=== PATIENT | male | born 1985 | race Caucasian/White ===

== ENCOUNTER 2017-09-20 21:37 | Inpatient (IN) | payer OTHER ==
[2017-09-20] MEDS ORDERED: SODIUM CHLORIDE 1,000 ML IV STA (21:44)
--- NOTE | 2017-09-20 21:46 | PDOC ---
Rapid Medical Evaluation Time Seen by Provider: 09/20/17 21:39 Medical Evaluation: Allergies Allergy/AdvReac Type Severity Reaction Status Date / Time No Known Allergies Allergy Verified 05/04/14 16:57 09/20/17 21:39 I have performed a brief in-person evaluation of this patient. The patient presents with a chief complaint of: LUQ pain Pertinent physical exam findings: abd firm non-tender. I have ordered the following: labs, CT The patient will proceed to the ED for further evaluation. Discharge Disposition - Diagnosis Abdominal pain - Referrals - Patient Instructions - Post Discharge Activity
[2017-09-20 22:21] LABS: HEMATOCRIT 45.7 % (35.4-49); HEMOGLOBIN 15.3 GM/dL (11.7-16.9); MCH 30.3 pg (25.7-33.7); MCHC 33.5 g/dl (32.0-35.9); MEAN CELL VOLUME 90.6 fl (80-96); MEAN PLT VOLUME 7.9 fl (7.5-11.1); PLATELET COUNT 467 K/MM3 (134-434); RBC 5.04 M/mm3 (4.00-5.60); RDW 13.5 % (11.9-15.9); WHITE BLOOD COUNT 28.1 K/mm3 (4.0-10.0)
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
[2017-09-20 22:36] LABS: INR 1.02 (0.82-1.09); PROTHROMBIN TIME (PATIENT) 11.5 SEC (9.7-13.0)
[2017-09-20 22:54] LABS: ALBUMIN 4.1 g/dl (3.4-5.0); ALK PHOS 83 U/L (45-117); ANION GAP 9 (8-16); BILIRUBIN,TOTAL 1.6 mg/dL (0.2-1.0); BLOOD UREA NITROGEN 19 mg/dL (7-18); CHLORIDE 104 mmol/L (98-107); CO2 27 mmol/L (21-32); CREATININE 1.3 mg/dL (0.7-1.3); GLUCOSE,RANDOM 133 mg/dL (74-106); LIPASE 176 U/L (73-393); POTASSIUM 4.1 mmol/L (3.5-5.1); SGOT/AST 174 U/L (15-37); SGPT/ALT 116 U/L (12-78); SODIUM 140 mmol/L (136-145); TOT PROT 7.9 g/dl (6.4-8.2)
[2017-09-20] MEDS ORDERED: morphine SULFATE 4 MG/ML VIAL IVPUSH ONE (23:27)
[2017-09-20] MEDS ORDERED: morphine SULFATE 4 MG/ML VIAL ONE (23:28)
[2017-09-21] LABS: MACROCYTOSIS 1+; PLATELET ESTIMATE SLT INCREASE
[2017-09-21 00:05] LABS: URINE APPEARANCE CLEAR; URINE BILIRUBIN NEGATIVE (<2.0 mg/dL); URINE COLOR LTYELLOW; URINE GLUCOSE (UA) NEGATIVE (NEGATIVE); URINE KETONE 1+ (NEGATIVE); URINE LEUK ESTERASE NEGATIVE (NEGATIVE); URINE NITRITE NEGATIVE (NEGATIVE); URINE PROTEIN NEGATIVE (NEGATIVE); URINE UROBILINOGEN NEGATIVE mg/dL (0.2-1.0)
--- NOTE | 2017-09-21 00:22 | PDOC ---
*Physical Exam - Vital Signs Last Vital Signs Temp Pulse Resp BP Pulse Ox 98 F 57 L 18 155/79 95 09/20/17 21:43 09/20/17 21:43 09/20/17 21:43 09/20/17 21:43 09/21/17 00:17 - Physical Exam Comments: 09/21/17 00:19 gen: aaox3, uncomfortable, diaphoretic heart: +s1s2 reg lungs: cta b/l abd: soft, epigastric ttp, periumbilical ttp, no rebound or guarding, had a bm in ED that was normal ext: no c/c/e ED Treatment Course - LABORATORY CBC & Chemistry Diagram: 09/20/17 22:00 09/20/17 22:00 - ADDITIONAL ORDERS Additional order review: Laboratory Results 09/20/17 09/20/17 09/20/17 23:38 22:00 22:00 PT with INR INR Sodium 140 Potassium 4.1 Chloride 104 Carbon Dioxide 27 Anion Gap 9 BUN 19 H D Creatinine 1.3 D Creat Clearance w eGFR > 60 Random Glucose 133 H D Calcium 10.0 Total Bilirubin 1.6 H D AST 174 H D ALT 116 H D Alkaline Phosphatase 83 Total Protein 7.9 Albumin 4.1 Lipase 176 Urine Color Ltyellow Urine Appearance Clear Urine pH 6.0 Ur Specific Bandy 1.016 Urine Protein Negative Urine Glucose (UA) Negative Urine Ketones 1+ H Urine Blood Negative Urine Nitrite Negative Urine Bilirubin Negative Urine Urobilinogen Negative Ur Leukocyte Esterase Negative Blood Type O POSITIVE Antibody Screen Negative 09/20/17 22:00 PT with INR 11.50 INR 1.02 Sodium Potassium Chloride Carbon Dioxide Anion Gap BUN Creatinine Creat Clearance w eGFR Random Glucose Calcium Total Bilirubin AST ALT Alkaline Phosphatase Total Protein Albumin Lipase Urine Color Urine Appearance Urine pH Ur Specific Bandy Urine Protein Urine Glucose (UA) Urine Ketones Urine Blood Urine Nitrite Urine Bilirubin Urine Urobilinogen Ur Leukocyte Esterase Blood Type Antibody Screen 09/20/17 22:00 RBC 5.04 MCV 90.6 MCHC 33.5 RDW 13.5 MPV 7.9 Neutrophils % No Result Required. Lymphocytes % No Result Required. - Medications Given in the ED: ED Medications Discontinued Medications Generic Name Dose Route Start Last Admin Trade Name Freq PRN Reason Stop Dose Admin Sodium Chloride 1,000 mls @ 1,000 mls/hr 09/20/17 21:44 09/20/17 22:16 Normal Saline - IV 09/20/17 22:43 1,000 mls/hr ASDIR STA Administration Morphine Sulfate 4 mg 09/20/17 23:27 09/20/17 23:59 Morphine Sulfate IVPUSH 09/20/17 23:28 4 mg ONCE ONE Administration Medical Decision Making - Medical Decision Making 09/21/17 00:20 a/p: 31yo male with hx of SBO and multiple abd surgeries with acute onset of pain today -had bm in ED, however epigastric fullness feeling that is similar to SBO in past -will check labs, ct abd/pelvis 09/21/17 00:21 wbc [address] pending *DC/Admit/Observation/Transfer Diagnosis at time of Disposition: Abdominal pain - Referrals - Patient Instructions - Post Discharge Activity
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
[2017-09-21] MEDS ORDERED: SODIUM CHLORIDE 1,000 ML IV SCH (03:30)
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
[2017-09-21] MEDS ORDERED: PIPERACILLIN/TAZOB 3.375 GM 3.375 GM in DEXTROSE 5%-WATER - 50 ML IVPB ONE (11:00)
[2017-09-21 11:49] LABS: HEMATOCRIT 43.1 % (35.4-49); HEMOGLOBIN 15.1 GM/dL (11.7-16.9); MCH 31.4 pg (25.7-33.7); MCHC 34.9 g/dl (32.0-35.9); MEAN CELL VOLUME 89.9 fl (80-96); MEAN PLT VOLUME 8.3 fl (7.5-11.1); PLATELET COUNT 435 K/MM3 (134-434); RBC 4.79 M/mm3 (4.00-5.60); RDW 13.6 % (11.9-15.9); WHITE BLOOD COUNT 12.8 K/mm3 (4.0-10.0)
[2017-09-21] MEDS ORDERED: PIPERACILLIN/TAZOBACTAM 3.375 GM VIAL IVPB ONE (11:51)
[2017-09-21] MEDS ORDERED: DEXTROSE 5%-WATER - 50 ML IVPB ONE (11:51)
[2017-09-21 11:55] LABS: INR 1.09 (0.82-1.09); PROTHROMBIN TIME (PATIENT) 12.3 SEC (9.7-13.0)
[2017-09-21 11:58] LABS: ACTIVATED PTT 33.4 SECONDS (26.9-34.4)
[2017-09-21 12:43] VITALS: BMI 21.9
[2017-09-21 13:05] LABS: ALBUMIN 4.1 g/dl (3.4-5.0)
[2017-09-21 13:10] LABS: BILIRUBIN,DIRECT 0.5 mg/dL (0.0-0.2); TOT PROT 7.8 g/dl (6.4-8.2)
[2017-09-21] MEDS ORDERED: PT OWN MED DRAWER 7, Y5N ONE (14:15)
--- NOTE | 2017-09-21 14:40 | PN ---
Progress Note (short form) - Note Progress Note: ID Consult dictated Cholelithiasis R/O cholecystitis Leukocytosis- multifactorial S/P splenectomy Await c/s MRI abdomen Empiric levaquin / flagyl
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
[2017-09-21] MEDS: LACTATED RINGERS SOLUTION 1,000 ML/1,000 ML INFUS.BAG IV SCH (23:51)
[2017-09-22 06:42] LABS: EOS % 1.9 % (0-4.5); HEMATOCRIT 40.2 % (35.4-49); LYMPH % 35.6 % (8-40); MCH 31.3 pg (25.7-33.7); MCHC 34.7 g/dl (32.0-35.9); MEAN CELL VOLUME 90.3 fl (80-96); MEAN PLT VOLUME 8.1 fl (7.5-11.1); MONO % 9.1 % (3.8-10.2); NEUT % 52.4 % (42.8-82.8); PLATELET COUNT 390 K/MM3 (134-434); RBC 4.46 M/mm3 (4.00-5.60); RDW 13.7 % (11.9-15.9); WHITE BLOOD COUNT 12.6 K/mm3 (4.0-10.0)
[2017-09-22 06:53] LABS: ALBUMIN 3.6 g/dl (3.4-5.0); ANION GAP 10 (8-16); BLOOD UREA NITROGEN 13 mg/dL (7-18); CHLORIDE 105 mmol/L (98-107); CO2 24 mmol/L (21-32); CREATININE 0.9 mg/dL (0.7-1.3); GLUCOSE,RANDOM 71 mg/dL (74-106); POTASSIUM 4.4 mmol/L (3.5-5.1); SGOT/AST 42 U/L (15-37); SGPT/ALT 125 U/L (12-78); SODIUM 139 mmol/L (136-145); TOT PROT 6.7 g/dl (6.4-8.2)
[2017-09-22 06:54] LABS: ALK PHOS 78 U/L (45-117)
--- NOTE | 2017-09-22 09:09 | PN ---
Progress Note, Physician History of Present Illness: Asymptomatic. No events overnight. MRI formal report pending - Current Medication List Current Medications: Active Medications Lactated Ringer's (Lactated Ringers Solution) 1,000 ml in 1,000 mls @ 125 mls/ hr IV ASDIR [facility] Last Admin: 09/21/17 23:51 Dose: 125 mls/hr Metronidazole (Flagyl 500mg Premixed Ivpb -) 500 mg in 100 mls @ 100 mls/hr IVPB Q6H-IV [facility] Last Admin: 09/22/17 02:15 Dose: 100 mls/hr Sodium Chloride (Normal Saline -) 1,000 mls @ 52 mls/hr IV ASDIR [facility] Levofloxacin (Levaquin 750 Mg Premixed Ivpb -) 750 mg in 150 mls @ 150 mls/hr IVPB DAILY [facility] - Objective Vital Signs: Vital Signs Temperature 98 F 09/22/17 03:00 Pulse Rate 75 09/22/17 03:00 Respiratory Rate 18 09/22/17 03:00 Blood Pressure 108/65 09/22/17 03:00 O2 Sat by Pulse Oximetry (%) 95 09/21/17 21:00 Constitutional: Yes: Well Nourished, No Distress, Calm Gastrointestinal: Yes: Normal Bowel Sounds, Soft. No: Ascites, Distention, Melena, Tenderness, Tenderness, Rebound, Vomiting Neurological: Yes: Alert, Oriented Labs: CBC, BMP 09/22/17 05:15 09/22/17 05:15 INR, PTT INR 1.09 (0.82-1.09) 09/21/17 10:50 Laboratory Last Values WBC 12.6 K/mm3 (4.0-10.0) H 09/22/17 05:15 RBC 4.46 M/mm3 (4.00-5.60) 09/22/17 05:15 Hgb 14.0 GM/dL (11.7-16.9) 09/22/17 05:15 Hct 40.2 % (35.4-49) 09/22/17 05:15 MCV 90.3 fl (80-96) 09/22/17 05:15 MCH 31.3 pg (25.7-33.7) 09/22/17 05:15 MCHC 34.7 g/dl (32.0-35.9) 09/22/17 05:15 RDW 13.7 % (11.9-15.9) 09/22/17 05:15 Plt Count 390 K/MM3 (134-434) 09/22/17 05:15 MPV 8.1 fl (7.5-11.1) 09/22/17 05:15 Absolute Neuts (auto) 6.6 # 09/22/17 05:15 Total Counted 100 09/20/17 22:00 Neutrophils % 52.4 % (42.8-82.8) D 09/22/17 05:15 Neutrophils % (Manual) 70.0 % (42.8-82.8) 09/20/17 22:00 Lymphocytes % 35.6 % (8-40) D 09/22/17 05:15 Lymphocytes % (Manual) 25.0 % (8-40) 09/20/17 22:00 Monocytes % 9.1 % (3.8-10.2) 09/22/17 05:15 Monocytes % (Manual) 5 % (3.8-10.2) 09/20/17 22:00 Eosinophils % 1.9 % (0-4.5) D 09/22/17 05:15 Basophils % 1.0 % (0-2.0) 09/22/17 05:15 Nucleated RBC % 0 % (0-0) 09/22/17 05:15 Differential Comment Man diff performed 09/20/17 22:00 Platelet Estimate Slt increase 09/20/17 22:00 Platelet Comment 09/20/17 22:00 Macrocytosis 1+ 09/20/17 22:00 PT with INR 12.30 SEC (9.7-13.0) 09/21/17 10:50 INR 1.09 (0.82-1.09) 09/21/17 10:50 PTT (Actin FS) 33.4 SECONDS (26.9-34.4) 09/21/17 10:50 Sodium 139 mmol/L (136-145) 09/22/17 05:15 Potassium 4.4 mmol/L (3.5-5.1) 09/22/17 05:15 Chloride 105 mmol/L (98-107) 09/22/17 05:15 Carbon Dioxide 24 mmol/L (21-32) 09/22/17 05:15 Anion Gap 10 (8-16) 09/22/17 05:15 BUN 13 mg/dL (7-18) D 09/22/17 05:15 Creatinine 0.9 mg/dL (0.7-1.3) D 09/22/17 05:15 Creat Clearance w eGFR > 60 (>60) 09/22/17 05:15 Random Glucose 71 mg/dL (74-106) L D 09/22/17 05:15 Calcium 9.0 mg/dL (8.5-10.1) 09/22/17 05:15 Total Bilirubin 3.0 mg/dL (0.2-1.0) H D 09/22/17 05:15 Direct Bilirubin 0.5 mg/dL (0.0-0.2) H 09/21/17 10:50 AST 42 U/L (15-37) H D 09/22/17 05:15 ALT 125 U/L (12-78) H D 09/22/17 05:15 Alkaline Phosphatase 78 U/L (45-117) D 09/22/17 05:15 Total Protein 6.7 g/dl (6.4-8.2) 09/22/17 05:15 Albumin 3.6 g/dl (3.4-5.0) 09/22/17 05:15 Lipase 176 U/L (73-393) 09/20/17 22:00 Urine Color Ltyellow 09/20/17 23:38 Urine Appearance Clear 09/20/17 23:38 Urine pH 6.0 (5.0-8.0) 09/20/17 23:38 Ur Specific [place] 1.016 (1.001-1.035) 09/20/17 23:38 Urine Protein Negative (NEGATIVE) 09/20/17 23:38 Urine Glucose (UA) Negative (NEGATIVE) 09/20/17 23:38 Urine Ketones 1+ (NEGATIVE) H 09/20/17 23:38 Urine Blood Negative (NEGATIVE) 09/20/17 23:38 Urine Nitrite Negative (NEGATIVE) 09/20/17 23:38 Urine Bilirubin Negative (<2.0 mg/dL) 09/20/17 23:38 Urine Urobilinogen Negative mg/dL (0.2-1.0) 09/20/17 23:38 Ur Leukocyte Esterase Negative (NEGATIVE) 09/20/17 23:38 Blood Type O POSITIVE 09/20/17 22:00 Antibody Screen Negative 09/20/17 22:00 Problem List - Problems (1) History of small bowel obstruction Code(s): Z87.19 - PERSONAL HISTORY OF OTHER DISEASES OF THE DIGESTIVE SYSTEM (2) Abdominal pain Code(s): R10.9 - UNSPECIFIED ABDOMINAL PAIN (3) History of nephrectomy Code(s): Z90.5 - ACQUIRED ABSENCE OF KIDNEY (4) History of total splenectomy Code(s): Z90.81 - ACQUIRED ABSENCE OF SPLEEN (5) Transaminitis Code(s): R74.0 - NONSPEC ELEV OF LEVELS OF TRANSAMNS & LACTIC ACID DEHYDRGNSE Assessment/Plan Unclear etiology of the pain, ? biliary colic, ? resolved SBO, ? passed biliary stone, ? PUD. Disproportionately elevated indirect bili with ALT predominant hepatitis. No intrahepatic, or extraherpatic cholestasis on labs. Agree with viral serology. Avoid hepatotoxic meds. SHANITA, LDH, haptoglobin, daily liver chem. ALP, t and d bili. MRCP. Will follow.
--- NOTE | 2017-09-22 09:48 | PN ---
Progress Note, Physician History of Present Illness: pt seen/ examined. chart reviewed feels ok npo mother at bedside - Current Medication List Current Medications: Active Medications Lactated Ringer's (Lactated Ringers Solution) 1,000 ml in 1,000 mls @ 125 mls/ hr IV ASDIR [facility] Last Admin: 09/21/17 23:51 Dose: 125 mls/hr Metronidazole (Flagyl 500mg Premixed Ivpb -) 500 mg in 100 mls @ 100 mls/hr IVPB Q6H-IV [facility] Last Admin: 09/22/17 09:41 Dose: 100 mls/hr Levofloxacin (Levaquin 750 Mg Premixed Ivpb -) 750 mg in 150 mls @ 150 mls/hr IVPB DAILY [facility] Last Admin: 09/22/17 09:41 Dose: 150 mls/hr - Objective Vital Signs: Vital Signs Temperature 98 F 09/22/17 03:00 Pulse Rate 75 09/22/17 03:00 Respiratory Rate 18 09/22/17 03:00 Blood Pressure 108/65 09/22/17 03:00 O2 Sat by Pulse Oximetry (%) 95 09/21/17 21:00 Constitutional: Yes: No Distress Neck: Yes: Supple Cardiovascular: Yes: Regular Rate and Rhythm Respiratory: Yes: CTA Bilaterally Gastrointestinal: Yes: Normal Bowel Sounds, Soft Edema: No Neurological: Yes: Alert Labs: CBC, BMP 09/22/17 05:15 09/22/17 05:15 INR, PTT INR 1.09 (0.82-1.09) 09/21/17 10:50 - ....Imaging Cat Scan: Report Reviewed MRI: Pending Problem List - Problems (1) Abdominal pain Code(s): R10.9 - UNSPECIFIED ABDOMINAL PAIN (2) Choledocholithiasis Code(s): K80.50 - CALCULUS OF BILE DUCT W/O CHOLANGITIS OR CHOLECYST W/O OBST (3) History of nephrectomy Code(s): Z90.5 - ACQUIRED ABSENCE OF KIDNEY (4) History of total splenectomy Code(s): Z90.81 - ACQUIRED ABSENCE OF SPLEEN (5) Transaminitis Code(s): R74.0 - NONSPEC ELEV OF LEVELS OF TRANSAMNS & LACTIC ACID DEHYDRGNSE Assessment/Plan clinically better wbc coming down monitor lfts cholecystectomy planned in near future abx start on diet ? gi to follow will follow discussed with pts mother also
[2017-09-22] MEDS: LACTATED RINGERS SOLUTION 1,000 ML/1,000 ML INFUS.BAG IV SCH ×2 (10:00→20:33)
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
--- NOTE | 2017-09-22 12:02 | PN ---
Progress Note (short form) - Note Progress Note: MRI and Sx note noted. Await labs Problem List - Problems (1) History of small bowel obstruction Code(s): Z87.19 - PERSONAL HISTORY OF OTHER DISEASES OF THE DIGESTIVE SYSTEM (2) Abdominal pain Code(s): R10.9 - UNSPECIFIED ABDOMINAL PAIN (3) History of nephrectomy Code(s): Z90.5 - ACQUIRED ABSENCE OF KIDNEY (4) History of total splenectomy Code(s): Z90.81 - ACQUIRED ABSENCE OF SPLEEN (5) Transaminitis Code(s): R74.0 - NONSPEC ELEV OF LEVELS OF TRANSAMNS & LACTIC ACID DEHYDRGNSE
--- NOTE | 2017-09-22 14:52 | PN ---
Progress Note, Physician History of Present Illness: Awake, alert No c/o abdominal pain No N/V + BM No c/o fever/ chills Tolerating antibiotics Now on clear liquids - Current Medication List Current Medications: Active Medications Lactated Ringer's (Lactated Ringers Solution) 1,000 ml in 1,000 mls @ 125 mls/ hr IV ASDIR [facility] Last Admin: 09/21/17 23:51 Dose: 125 mls/hr Metronidazole (Flagyl 500mg Premixed Ivpb -) 500 mg in 100 mls @ 100 mls/hr IVPB Q6H-IV [facility] Last Admin: 09/22/17 09:41 Dose: 100 mls/hr Levofloxacin (Levaquin 750 Mg Premixed Ivpb -) 750 mg in 150 mls @ 150 mls/hr IVPB DAILY [facility] Last Admin: 09/22/17 09:41 Dose: 150 mls/hr - Objective Vital Signs: Vital Signs Temperature 98.0 F 09/22/17 09:00 Pulse Rate 78 09/22/17 09:00 Respiratory Rate 20 09/22/17 09:00 Blood Pressure 100/56 09/22/17 09:00 O2 Sat by Pulse Oximetry (%) 95 09/21/17 21:00 Constitutional: Yes: No Distress Cardiovascular: Yes: Regular Rate and Rhythm, S1, S2 Respiratory: Yes: CTA Bilaterally Gastrointestinal: Yes: Normal Bowel Sounds, Soft. No: Tenderness Edema: No Labs: CBC, BMP 09/22/17 05:15 09/22/17 05:15 INR, PTT INR 1.09 (0.82-1.09) 09/21/17 10:50 Assessment/Plan Cholithiasis/ cholecystitis Clinically improved Continue empiric levaquin/ flagyl Cholecystectomy per surgery
[2017-09-23 06:06] LABS: CARCINOEMBRYONIC ANTIGEN 2.1 ng/mL (0.0-4.7)
[2017-09-23] MEDS: LACTATED RINGERS SOLUTION 1,000 ML/1,000 ML INFUS.BAG IV SCH ×3 (06:26→18:17)
[2017-09-23 08:07] LABS: HEMOGLOBIN 14.2 GM/dL (11.7-16.9); MCH 31.4 pg (25.7-33.7); MCHC 34.7 g/dl (32.0-35.9); MEAN CELL VOLUME 90.5 fl (80-96); MEAN PLT VOLUME 8.1 fl (7.5-11.1); MONO % 10.1 % (3.8-10.2); NEUT % 42.9 % (42.8-82.8); PLATELET COUNT 402 K/MM3 (134-434); RBC 4.53 M/mm3 (4.00-5.60); RDW 13.4 % (11.9-15.9); WHITE BLOOD COUNT 10.8 K/mm3 (4.0-10.0)
[2017-09-23 08:42] LABS: ALBUMIN 3.7 g/dl (3.4-5.0); BLOOD UREA NITROGEN 10 mg/dL (7-18); CHLORIDE 105 mmol/L (98-107); GLUCOSE,RANDOM 83 mg/dL (74-106); POTASSIUM 4.4 mmol/L (3.5-5.1); SODIUM 141 mmol/L (136-145)
[2017-09-23 08:48] LABS: ALK PHOS 73 U/L (45-117); ANION GAP 7 (8-16); BILIRUBIN,TOTAL 2.7 mg/dL (0.2-1.0); CALCIUM 9.1 mg/dL (8.5-10.1); CO2 29 mmol/L (21-32); SGOT/AST 23 U/L (15-37); SGPT/ALT 87 U/L (12-78); TOT PROT 6.8 g/dl (6.4-8.2)
[2017-09-23] MEDS ORDERED: ONDANSETRON 4 MG/2 ML VIAL IVPB PRN (09:53)
[2017-09-23] MEDS ORDERED: ACETAMINOPHEN 325 MG TABLET (FP) PO PRN (09:53)
--- NOTE | 2017-09-23 10:32 | PN ---
Progress Note, Physician History of Present Illness: pt seen/ examined. feels good no complains all f/u noted on clear liquid diet cholecystectomy scheduled for Monday - Current Medication List Current Medications: Active Medications Acetaminophen (Tylenol -) 650 mg PO Q6H PRN PRN Reason: FEVER Lactated Ringer's (Lactated Ringers Solution) 1,000 ml in 1,000 mls @ 125 mls/ hr IV ASDIR [facility] Last Admin: 09/23/17 06:26 Dose: 125 mls/hr Metronidazole (Flagyl 500mg Premixed Ivpb -) 500 mg in 100 mls @ 100 mls/hr IVPB Q6H-IV [facility] Last Admin: 09/23/17 09:16 Dose: 100 mls/hr Levofloxacin (Levaquin 750 Mg Premixed Ivpb -) 750 mg in 150 mls @ 150 mls/hr IVPB DAILY [facility] Last Admin: 09/22/17 09:41 Dose: 150 mls/hr Ondansetron HCl (Zofran Injection) 4 mg IVPB Q8H PRN PRN Reason: NAUSEA Pantoprazole Sodium (Protonix Iv) 40 mg IVPUSH DAILY [facility] - Objective Vital Signs: Vital Signs Temperature 98 F 09/23/17 05:00 Pulse Rate 66 09/23/17 05:00 Respiratory Rate 18 09/23/17 05:00 Blood Pressure 119/67 09/23/17 05:00 O2 Sat by Pulse Oximetry (%) 99 09/22/17 21:00 Constitutional: Yes: No Distress, Calm Eyes: Yes: Conjunctiva Clear Neck: Yes: Supple Cardiovascular: Yes: Regular Rate and Rhythm Respiratory: Yes: CTA Bilaterally Gastrointestinal: Yes: Normal Bowel Sounds, Soft Edema: No Neurological: Yes: Alert Psychiatric: Yes: Alert Labs: CBC, BMP 09/23/17 06:30 09/23/17 06:30 INR, PTT INR 1.09 (0.82-1.09) 09/21/17 10:50 Problem List - Problems (1) Abdominal pain Code(s): R10.9 - UNSPECIFIED ABDOMINAL PAIN (2) Choledocholithiasis Code(s): K80.50 - CALCULUS OF BILE DUCT W/O CHOLANGITIS OR CHOLECYST W/O OBST (3) History of nephrectomy Code(s): Z90.5 - ACQUIRED ABSENCE OF KIDNEY (4) History of total splenectomy Code(s): Z90.81 - ACQUIRED ABSENCE OF SPLEEN (5) Transaminitis Code(s): R74.0 - NONSPEC ELEV OF LEVELS OF TRANSAMNS & LACTIC ACID DEHYDRGNSE Assessment/Plan clinically better wbc coming down monitor lfts- improved cholecystectomy planned abx advance diet as tolerated will follow
[2017-09-23] MEDS: PANTOPRAZOLE SODIUM 40 MG VIAL IVPUSH SCH (11:31)
[2017-09-23 14:10] LABS: HEP.C VIRUS AB 0.1 s/co ratio (0.0-0.9)
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
[2017-09-23] MEDS: HEPARIN NA (PORCINE) 5,000 UNITS/ML 1ML VIAL SQ SCH (21:55)
[2017-09-24] MEDS: LACTATED RINGERS SOLUTION 1,000 ML/1,000 ML INFUS.BAG IV SCH ×3 (03:15→15:42)
[2017-09-24 06:45] LABS: ALBUMIN 3.5 g/dl (3.4-5.0); ALK PHOS 64 U/L (45-117); ANION GAP 10 (8-16); BILIRUBIN,TOTAL 1.7 mg/dL (0.2-1.0); BLOOD UREA NITROGEN 9 mg/dL (7-18); CALCIUM 8.9 mg/dL (8.5-10.1); CHLORIDE 103 mmol/L (98-107); CO2 28 mmol/L (21-32); GLUCOSE,RANDOM 77 mg/dL (74-106); POTASSIUM 4.1 mmol/L (3.5-5.1); SGOT/AST 17 U/L (15-37); SGPT/ALT 67 U/L (12-78); SODIUM 141 mmol/L (136-145); TOT PROT 6.5 g/dl (6.4-8.2)
[2017-09-24 07:05] LABS: BASO % 1.9 % (0-2.0); EOS % 5.7 % (0-4.5); HEMATOCRIT 39.1 % (35.4-49); HEMOGLOBIN 13.7 GM/dL (11.7-16.9); LYMPH % 40.5 % (8-40); MCH 31.5 pg (25.7-33.7); MCHC 35.2 g/dl (32.0-35.9); MEAN CELL VOLUME 89.6 fl (80-96); MEAN PLT VOLUME 8.3 fl (7.5-11.1); MONO % 10.6 % (3.8-10.2); NEUT % 41.3 % (42.8-82.8); PLATELET COUNT 374 K/MM3 (134-434); RBC 4.37 M/mm3 (4.00-5.60); RDW 13.1 % (11.9-15.9); WHITE BLOOD COUNT 11.4 K/mm3 (4.0-10.0)
[2017-09-24] MEDS: HEPARIN NA (PORCINE) 5,000 UNITS/ML 1ML VIAL SQ SCH (09:43)
[2017-09-24] MEDS: PANTOPRAZOLE SODIUM 40 MG VIAL IVPUSH SCH (09:44)
--- NOTE | 2017-09-24 12:08 | PN ---
Progress Note, Physician History of Present Illness: pt seen/ examined. feels good no complains cholecystectomy scheduled for Monday. lfts trending down - Current Medication List Current Medications: Active Medications Acetaminophen (Tylenol -) 650 mg PO Q6H PRN PRN Reason: FEVER Heparin Sodium (Porcine) (Heparin -) 5,000 unit SQ BID [facility] Last Admin: 09/24/17 09:43 Dose: Not Given Lactated Ringer's (Lactated Ringers Solution) 1,000 ml in 1,000 mls @ 125 mls/ hr IV ASDIR [facility] Last Admin: 09/24/17 03:15 Dose: 125 mls/hr Metronidazole (Flagyl 500mg Premixed Ivpb -) 500 mg in 100 mls @ 100 mls/hr IVPB Q6H-IV [facility] Last Admin: 09/24/17 08:46 Dose: 100 mls/hr Levofloxacin (Levaquin 750 Mg Premixed Ivpb -) 750 mg in 150 mls @ 150 mls/hr IVPB DAILY [facility] Last Admin: 09/24/17 09:47 Dose: 150 mls/hr Ondansetron HCl (Zofran Injection) 4 mg IVPB Q8H PRN PRN Reason: NAUSEA Pantoprazole Sodium (Protonix Iv) 40 mg IVPUSH DAILY [facility] Last Admin: 09/24/17 09:44 Dose: 40 mg - Objective Vital Signs: Vital Signs Temperature 98 F 09/24/17 10:06 Pulse Rate 72 09/24/17 10:06 Respiratory Rate 18 09/24/17 10:06 Blood Pressure 109/65 09/24/17 10:06 O2 Sat by Pulse Oximetry (%) 98 09/24/17 09:00 Constitutional: Yes: No Distress, Calm Eyes: Yes: Conjunctiva Clear Neck: Yes: Supple Cardiovascular: Yes: Regular Rate and Rhythm. No: Bruit Respiratory: Yes: CTA Bilaterally Gastrointestinal: Yes: Normal Bowel Sounds, Soft Edema: No Neurological: Yes: Alert Psychiatric: Yes: Alert Labs: CBC, BMP 09/24/17 05:15 09/24/17 05:15 INR, PTT INR 1.09 (0.82-1.09) 09/21/17 10:50 Problem List - Problems (1) Abdominal pain Code(s): R10.9 - UNSPECIFIED ABDOMINAL PAIN (2) Choledocholithiasis Code(s): K80.50 - CALCULUS OF BILE DUCT W/O CHOLANGITIS OR CHOLECYST W/O OBST (3) History of nephrectomy Code(s): Z90.5 - ACQUIRED ABSENCE OF KIDNEY (4) History of total splenectomy Code(s): Z90.81 - ACQUIRED ABSENCE OF SPLEEN (5) Transaminitis Code(s): R74.0 - NONSPEC ELEV OF LEVELS OF TRANSAMNS & LACTIC ACID DEHYDRGNSE Assessment/Plan clinically better wbc / lfts coming down cholecystectomy planned for tomorrow abx discussed with surgeon also Office records reviewed pt did had pneumovac 2015 pt ambulatory -- dont want heparin s/q will d/c it. Medically stable for propoed procedure I also ordered routine ekg
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
[2017-09-25] MEDS: LACTATED RINGERS SOLUTION 1,000 ML/1,000 ML INFUS.BAG IV SCH ×4 (03:00→22:32)
[2017-09-25] MEDS ORDERED: fentaNYL CITRATE 250 MCG/5 ML VIAL ONE (10:02)
[2017-09-25] MEDS ORDERED: MIDAZOLAM HCL 2 MG/2 ML SINGLE DOSE VIAL ONE (10:02)
[2017-09-25] MEDS ORDERED: ROCURONIUM BROMIDE 50 MG/5 ML VIAL ONE ×2 (10:02→10:46)
[2017-09-25] MEDS ORDERED: PROPOFOL 20 ML ONE (10:02)
[2017-09-25] MEDS ORDERED: BUPIVACAINE HCL/PF 0.5% (5MG/ML) 10 ML VIAL ONE (10:19)
[2017-09-25] MEDS ORDERED: DEXAMETHASONE SOD PHOSPHATE 4 MG/1 ML VIAL ONE (10:28)
[2017-09-25] MEDS ORDERED: GLYCOPYRROLATE 0.2 MG/1 ML VIAL ONE (11:41)
[2017-09-25] MEDS ORDERED: NEOSTIGMINE METHYLSULFATE 0.5 MG/ML - 10 ML MDV ONE (11:41)
[2017-09-25] MEDS ORDERED: BUPIVACAINE HCL/PF (5 MG/ML) 30 ML VIAL IJ ONE ×2 (11:46)
[2017-09-25] MEDS ORDERED: ONDANSETRON 4 MG/2 ML VIAL IVPUSH PRN (12:18)
[2017-09-25] MEDS ORDERED: LACTATED RINGERS SOLUTION 1,000 ML IV SCH (12:30)
--- NOTE | 2017-09-25 12:31 | OP ---
Operative Note - Note: Operative Date: 09/25/17 Pre-Operative Diagnosis: Acute on Chronic Cholecystitis, Umbilical hernia repair Operation: Laparoscopic Cholecystectomy and Primary Repair of Umbilical hernia Findings: Densely adherent distended and redundant gallbladder with large stones, critical view identified Post-Operative Diagnosis: Same as Pre-op Surgeon: Iron De La Garza Mainframe Applications Developer: Victoriano Smalls Anesthesiologist/[employer]: Bert Swain Anesthesia: General, Local Specimens Removed: gallbladder and stones Estimated Blood Loss (mls): 25 Fluid Volume Replaced (mls): 1,700 (crystalloid ) Operative Report Dictated: Yes
[2017-09-25] MEDS ORDERED: morphine CARPU-JECT 2 MG/1 ML DISP.SYRIN IVPUSH PRN ×2 (12:32→12:35)
[2017-09-25] MEDS ORDERED: IBUPROFEN 600 MG TABLET (FP) PO PRN ×2 (12:33→12:35)
[2017-09-25] MEDS ORDERED: ACETAMINOPHEN 325 MG TABLET (FP) PO PRN (12:35)
[2017-09-25] MEDS ORDERED: ONDANSETRON 4 MG/2 ML VIAL IVPB PRN (12:35)
[2017-09-25] MEDS: PANTOPRAZOLE SODIUM 40 MG VIAL IVPUSH SCH (13:59)
--- NOTE | 2017-09-25 15:10 | PN ---
Progress Note, Physician History of Present Illness: pt seen/ examined. comfortable s/p lap dane today. mother at bedside findings noted/ discussed with surgeon. Pre-Operative Diagnosis: Acute on Chronic Cholecystitis, Umbilical hernia repair Operation: Laparoscopic Cholecystectomy and Primary Repair of Umbilical hernia Findings: Densely adherent distended and redundant gallbladder with large stones, critical view identified Post-Operative Diagnosis: Same as Pre-op. - Current Medication List Current Medications: Active Medications Acetaminophen (Tylenol -) 650 mg PO Q6H PRN PRN Reason: FEVER Lactated Ringer's (Lactated Ringers Solution) 1,000 ml in 1,000 mls @ 125 mls/ hr IV [facility] Last Admin: 09/25/17 13:20 Dose: 0 mls Levofloxacin (Levaquin 750 Mg Premixed Ivpb -) 750 mg in 150 mls @ 150 mls/hr IVPB DAILY [facility] Metronidazole (Flagyl 500mg Premixed Ivpb -) 500 mg in 100 mls @ 100 mls/hr IVPB Q6H-IV [facility] Last Admin: 09/25/17 14:51 Dose: 100 mls/hr Ibuprofen (Motrin -) 600 mg PO Q6H PRN PRN Reason: PAIN LEVEL 1-5 Morphine Sulfate (Morphine Injection -) 4 mg IVPUSH Q4H PRN PRN Reason: PAIN LEVEL 7 - 10 Ondansetron HCl (Zofran Injection) 4 mg IVPB Q8H PRN PRN Reason: NAUSEA Pantoprazole Sodium (Protonix Iv) 40 mg IVPUSH DAILY [facility] [place] - Objective Vital Signs: Vital Signs Temperature 98.0 F 09/25/17 13:30 Pulse Rate 66 09/25/17 13:30 Respiratory Rate 14 09/25/17 13:30 Blood Pressure 115/71 09/25/17 13:30 O2 Sat by Pulse Oximetry (%) 100 09/25/17 13:30 Constitutional: Yes: No Distress, Calm Eyes: Yes: Conjunctiva Clear Neck: Yes: Supple Cardiovascular: Yes: Regular Rate and Rhythm Respiratory: Yes: CTA Bilaterally Gastrointestinal: Yes: Soft Edema: No Neurological: Yes: Alert Labs: CBC, BMP 09/24/17 05:15 09/24/17 05:15 INR, PTT INR 1.09 (0.82-1.09) 09/21/17 10:50 Problem List - Problems (1) Abdominal pain Code(s): R10.9 - UNSPECIFIED ABDOMINAL PAIN (2) Choledocholithiasis Code(s): K80.50 - CALCULUS OF BILE DUCT W/O CHOLANGITIS OR CHOLECYST W/O OBST (3) History of nephrectomy Code(s): Z90.5 - ACQUIRED ABSENCE OF KIDNEY (4) History of total splenectomy Code(s): Z90.81 - ACQUIRED ABSENCE OF SPLEEN (5) Transaminitis Code(s): R74.0 - NONSPEC ELEV OF LEVELS OF TRANSAMNS & LACTIC ACID DEHYDRGNSE Assessment/Plan stable s/p lap dane today pain control will follow
[2017-09-26 07:46] LABS: BASO % 0.8 % (0-2.0); EOS % 0.2 % (0-4.5); HEMATOCRIT 39.1 % (35.4-49); HEMOGLOBIN 13.4 GM/dL (11.7-16.9); LYMPH % 28.6 % (8-40); MCH 30.6 pg (25.7-33.7); MCHC 34.2 g/dl (32.0-35.9); MEAN CELL VOLUME 89.5 fl (80-96); MEAN PLT VOLUME 8.4 fl (7.5-11.1); MONO % 9.4 % (3.8-10.2); PLATELET COUNT 368 K/MM3 (134-434); RBC 4.37 M/mm3 (4.00-5.60); RDW 13.4 % (11.9-15.9); WHITE BLOOD COUNT 15.4 K/mm3 (4.0-10.0)
[2017-09-26 08:22] LABS: CHLORIDE 102 mmol/L (98-107); POTASSIUM 4.3 mmol/L (3.5-5.1); SODIUM 138 mmol/L (136-145)
[2017-09-26 08:33] LABS: ALBUMIN 3.5 g/dl (3.4-5.0); ALK PHOS 57 U/L (45-117); ANION GAP 12 (8-16); BILIRUBIN,TOTAL 1.4 mg/dL (0.2-1.0); BLOOD UREA NITROGEN 7 mg/dL (7-18); CO2 24 mmol/L (21-32); GLUCOSE,RANDOM 102 mg/dL (74-106); SGOT/AST 35 U/L (15-37); SGPT/ALT 65 U/L (12-78); TOT PROT 6.4 g/dl (6.4-8.2)
[2017-09-26] MEDS: PANTOPRAZOLE SODIUM 40 MG VIAL IVPUSH SCH (10:46)
--- NOTE | 2017-09-26 11:47 | PN ---
Progress Note (short form) - Note Progress Note: Anesthesia postop note 31 y/o M s/p GA for laparoscopic cholecistectomy POD#1, vss, aaox3, no complaints. No anesthesia complications.
--- NOTE | 2017-09-26 12:28 | PN ---
Progress Note, Physician Chief Complaint: decreased appetite No abdominal pain He likes to drink fluids more - Current Medication List Current Medications: Active Medications Acetaminophen (Tylenol -) 650 mg PO Q6H PRN PRN Reason: FEVER Lactated Ringer's (Lactated Ringers Solution) 1,000 ml in 1,000 mls @ 125 mls/ hr IV [facility]IR [facility] Last Admin: 09/25/17 22:32 Dose: 125 mls/hr Levofloxacin (Levaquin 750 Mg Premixed Ivpb -) 750 mg in 150 mls @ 150 mls/hr IVPB DAILY [facility] Last Admin: 09/26/17 10:46 Dose: 150 mls/hr Metronidazole (Flagyl 500mg Premixed Ivpb -) 500 mg in 100 mls @ 100 mls/hr IVPB Q6H-IV [facility] Last Admin: 09/26/17 10:45 Dose: 100 mls/hr Ibuprofen (Motrin -) 600 mg PO Q6H PRN PRN Reason: PAIN LEVEL 1-5 Morphine Sulfate (Morphine Injection -) 4 mg IVPUSH Q4H PRN PRN Reason: PAIN LEVEL 7 - 10 Ondansetron HCl (Zofran Injection) 4 mg IVPB Q8H PRN PRN Reason: NAUSEA Pantoprazole Sodium (Protonix Iv) 40 mg IVPUSH DAILY [facility] Last Admin: 09/26/17 10:46 Dose: 40 mg - Objective Vital Signs: Vital Signs Temperature 97.6 F 09/26/17 06:00 Pulse Rate 73 09/26/17 06:00 Respiratory Rate 18 09/26/17 06:00 Blood Pressure 104/56 09/26/17 06:00 O2 Sat by Pulse Oximetry (%) 99 09/25/17 21:00 Constitutional: Yes: No Distress, Calm Cardiovascular: Yes: Regular Rate and Rhythm Respiratory: Yes: CTA Bilaterally Gastrointestinal: Yes: Normal Bowel Sounds, Soft, Distention (mild), Other ( surgical scars noted). No: Tenderness Labs: CBC, BMP 09/26/17 06:45 09/26/17 06:45 INR, PTT INR 1.09 (0.82-1.09) 09/21/17 10:50 Problem List - Problems (1) Abdominal pain Code(s): R10.9 - UNSPECIFIED ABDOMINAL PAIN (2) Choledocholithiasis Code(s): K80.50 - CALCULUS OF BILE DUCT W/O CHOLANGITIS OR CHOLECYST W/O OBST (3) History of biliary colic Code(s): Z87.19 - PERSONAL HISTORY OF OTHER DISEASES OF THE DIGESTIVE SYSTEM (4) Transaminitis Code(s): R74.0 - NONSPEC ELEV OF LEVELS OF TRANSAMNS & LACTIC ACID DEHYDRGNSE Assessment/Plan PLAN Decrease fluids dc antibiotics-- maybe the cause of his decreased appetite OOB was unsteady getting up as per RN-- PT ordered LFT better Elevated WBC-- likely due to post op
--- NOTE | 2017-09-26 16:03 | PATH ---
Surgical Pathology Report Patient Name: ZAY BENAVIDES Med. Rec. #: [id number] /Age/Gender: 1985 (Age: 31) / M Account: [id number] Location: [address] [place] [address]/[facility] Taken: 09/25/2017 Received: 09/25/2017 Reported: 09/26/2017 Physicians: Rajesh Hill MD Specimen(s) Received GALLBLADDER Clinical History Choledocholithiasis Final Diagnosis GALLBLADDER, REMOVAL: CHRONIC CHOLECYSTITIS AND CHOLELITHIASIS. Electronically Signed Leticia Martines M.D. Gross Description Received in formalin, labeled "gallbladder," is a 9.0 x 2.8 x 2.8 cm. gallbladder with a 0.2 cm. in length portion of cystic duct attached. The outer surface is an-pink and varies from smooth to shaggy. The lumen contains green, tenacious bile as well as multiple green-brown, irregular choleliths, measuring up to 5.0 cm in greatest dimension. The mucosa is green and eroded. The wall of the gallbladder measures 0.1 cm. in thickness. Hydraulics Teacher sections are submitted in one cassette. /09/25/2017 [facility]09/25/2017
[2017-09-26] MEDS: LACTATED RINGERS SOLUTION 1,000 ML/1,000 ML INFUS.BAG IV SCH (20:50)
[2017-09-27] MEDS: LACTATED RINGERS SOLUTION 1,000 ML/1,000 ML INFUS.BAG IV SCH (06:14)
[2017-09-27 07:00] LABS: BASO % 1.3 % (0-2.0); EOS % 1.4 % (0-4.5); HEMATOCRIT 37.9 % (35.4-49); HEMOGLOBIN 13.4 GM/dL (11.7-16.9); LYMPH % 40.2 % (8-40); MCH 31.8 pg (25.7-33.7); MCHC 35.5 g/dl (32.0-35.9); MEAN CELL VOLUME 89.5 fl (80-96); MEAN PLT VOLUME 8.4 fl (7.5-11.1); MONO % 9.7 % (3.8-10.2); NEUT % 47.4 % (42.8-82.8); PLATELET COUNT 357 K/MM3 (134-434); RBC 4.23 M/mm3 (4.00-5.60); RDW 13.6 % (11.9-15.9); WHITE BLOOD COUNT 14.8 K/mm3 (4.0-10.0)
[2017-09-27 09:02] VITALS: BP 121/81; PULSE 79; TEMP 98.3
[2017-09-27] MEDS: PANTOPRAZOLE SODIUM 40 MG VIAL IVPUSH SCH (09:04)
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
--- NOTE | 2017-09-27 11:20 | DS ---
Physical Examination Vital Signs: Vital Signs Temperature 98.3 F 09/27/17 09:01 Pulse Rate 79 09/27/17 09:01 Respiratory Rate 20 09/27/17 09:01 Blood Pressure 121/81 09/27/17 09:01 O2 Sat by Pulse Oximetry (%) 98 09/26/17 21:00 Constitutional: Yes: No Distress, Calm Cardiovascular: Yes: Regular Rate and Rhythm Respiratory: Yes: CTA Bilaterally Gastrointestinal: Yes: Normal Bowel Sounds, Soft. No: Tenderness Edema: No Labs: CBC, BMP 09/27/17 05:50 09/26/17 06:45 Discharge Summary Reason For Visit: TRANSAMINITIS Current Active Problems Abdominal pain (Acute) Abdominal pain in male (Acute) Choledocholithiasis (Acute) History of biliary colic (Acute) History of nephrectomy (Acute) History of small bowel obstruction (Acute) History of total splenectomy (Acute) Transaminitis (Acute) Hospital Course: Pt was admitted for abdominal pain and elevated LFT Cholecystitis+ Seen by surgeon and GI Was initially on antibiotics Pt underwent lap dane- 09/25 pt ambulating dc antibiotics has better appetite stable for dc home Pt advised to stay home from work 2 weeks post discharge advised not to lift anything >10 pounds Condition: Improved - Instructions Diet, Activity, Other Instructions: Postoperative instructions: You had a laparoscopic cholecystectomy on 09/25/[address] Iron De La Garza of [facility]. Activity: Resume your usual activities gradually, but no heavy exertion or lifting more than 10-15 pounds for 1 month. The purple tinted plastic functions like a dressing. Do not pull or pick at it it will fall of over time. You may shower daily starting then, just pat the incision areas dry. Eat lightly at first, but advance to your usual diet as tolerated. Pain: For pain, you may use and alternate Tylenol (acetaminophen) and/or ibuprofen every 6 hours each as needed; this means that you can take one OR the other at 3-hour intervals. If you are prescribed a Tylenol/narcotic combination for severe pain, use it instead of plain Tylenol as needed and switch back when your pain starts decreasing. Do not take more than 4000mg of acetaminophen in a day. Take medications as prescribed or indicated on the labeling. Follow-up: Call Dr. De La Garza' office at [phone] to make your postop appointment (Monday ~2 weeks after surgery). Clinic is held in the [facility] on the first floor of [facility]. Call the office if you have: * increasing pain not responsive to pain medication * fever of 101F or higher * vomiting * unusual or increasing bleeding or drainage from wounds * increasing redness or swelling at wound sites * inability to urinate Also, see your primary medical doctor within 1-2 weeks. Pt was admitted in [facility] from 09/21- 09/27. He underwent surgery 09/25. Pt may return to work after 2 weeks from discharge Disposition: HOME - Home Medications Comprehensive Discharge Medication List: Ambulatory Orders NK [No Known Home Medication] 06/27/13
--- NOTE | 2017-09-27 12:37 | OP ---
DATE OF OPERATION: DATE OF DICTATION: 09/27/2017 PREOPERATIVE DIAGNOSIS: Acute on chronic cholecystitis and umbilical hernia. POSTOPERATIVE DIAGNOSIS: Acute on chronic cholecystitis and umbilical hernia. PROCEDURE: Laparoscopic cholecystectomy, primary repair umbilical hernia. ATTENDING SURGEON: Iron De La Garza MD TRICK RODEO RIDER: Victoriano Smalls MD ANESTHESIOLOGIST: Bert Swain MD ANESTHESIA: General with local. Local consisted of 0.5% Marcaine, a total of 20 mL given in area block fashion at the port sites. ESTIMATED BLOOD LOSS: 25 mL. INTRAVENOUS FLUID ADMINISTERED: 1700 mL. SPECIMEN: Gallbladder and stones. BRIEF FINDINGS: Densely adherent, distended, redundant gallbladder near the midline with large stones. Critical view is identified. INDICATIONS: Patient is a 31-year-old male presenting with right upper quadrant and mid epigastric pain, aching, crampy in nature following meals. He was evaluated with CT scan and ultrasound, noted to have a gallbladder filled with stones. MRCP confirmed the absence of choledocholithiasis obstructing hepatobiliary outlet. He was counseled regarding the need for laparoscopic cholecystectomy. He signed informed consent after being explained the risks, benefits, and alternatives, and having his questions answered satisfactorily. He was then taken for the procedure. DESCRIPTION OF PROCEDURE: The patient was brought to the operating room. He was placed in supine position on the operating table with the right arm tucked and the left arm extended 90 degrees perpendicular to the bodys midline axis. The anterior abdominal wall was prepped and draped in standard surgical fashion. SCDs were placed on the lower extremities bilaterally. Patient received intravenous antibiotics preoperatively, as well. He was induced with general anesthesia, endotracheally intubated. At which point, we proceeded with a formal time-out identifying the operative procedure and site. With all parties in agreement, we proceeded first with an umbilical Iliana approach in the mid scar. An entry site was marked in the supraumbilical position along the midline access. It was opened with the 15-blade scalpel, deepening and widening through subcutaneous tissues with Bovie cautery. At which point, we identified an umbilical hernia. A tuft of epigastric fat was poking through the hernia site. It was debrided. It was preperitoneal. The fascia, once grasped, a figure-of-8 was placed in a position to ablate the hernia defect, which was identified. Upon entry into the abdomen, it was clear that there was no additional trauma. A Iliana 12-mm port was installed, and a pneumoperitoneum established to 15 mmHg. At which point, we proceeded then with inspection of the site. There were dense adhesions throughout the abdomen, which required a small amount of blunt dissection with the camera. This allowed for a window to be opened in the right upper quadrant and for the gallbladder to be inspected. Once it was identified, additional port sites were installed into the right abdomen, a total of 3 to allow for visualization. Additional subxiphoid was placed under direct visualization as resighting the camera for adequate inspection. Once the gallbladder could be clearly identified, the dome of the gallbladder was grasped and retracted. We then proceeded with identification of the infundibulum of the gallbladder. Once this was identified, a plane was developed using a cautery hook to develop a plane both lateral towards the right side of the abdomen and also in the biliary triangle to establish the circumference of the cystic duct. With the peritoneum elevated from this site, we then developed a plane behind the cystic duct. The cystic artery was also identified. The hepatic artery appeared large and tortuous, was in the field, but could easily be excluded from the planes of infection. At which point, we identified the cystic artery, as well. When the cystic artery and duct were identified, decision was made to use 5-mm Weck clips to control the cystic duct proximally and distally, and then, they were divided. With adequate tension then on the cystic artery, the structures were then cross-clamped with 5-mm clips and divided. We proceeded then with elevation of the gallbladder from the hepatic plate with the gallbladder completely using the cautery hook, developing a plane at the hepatic plate from the liver. It was then retrieved from the umbilical port using an EndoCatch bag 10 mm. Once retrieved, it was clear that there was a significant amount of hard stones. The gallbladder was inspected and then passed off the field for final pathologic diagnosis. We then reinserted the Iliana port for inspection of the hepatic plate. Hemostasis was obtained using Bovie along the small bleeding punctums. We then proceeded with a small amount of irrigation at the site. The patient was repositioned, and then, the ports were removed under direct visualization. Pneumoperitoneum was relieved. The port site was then tied, the figure-of-8 at the umbilicus to ablate the space on the umbilical hernia, which was discovered. We then proceeded with closure of the 5-mm ports at the skin using 4-0 Vicryl in interrupted fashion and a running 4-0 subcuticular closure of the Iliana entry point. The skin was cleaned, sterile dressings were placed and Dermabond. The patient was awoken from general anesthesia having tolerated the procedure well. He was returned to recovery in stable condition. Counts were correct. MD ARABELLA [id number]
== END 2017-09-27 14:28 | disposition home or self-care (01) | DRG 263 ==
LOC: JER 21:37 → JERBED 09-21 02:00 → J5S 09-21 09:28
PROVIDERS: ADMIT Internal Medicine; ATTEND Internal Medicine
PROC: 0FT44ZZ Resection of Gallbladder, Percutaneous Endoscopic Approach (ICD-10-PCS; principal; 2017-09-27)
PROC: 0WQF4ZZ Repair Abdominal Wall, Percutaneous Endoscopic Approach (ICD-10-PCS; 2017-09-27)
DX: K80.12 Calculus of gallbladder with acute and chronic cholecystitis without obstruction (principal); R74.0 Nonspecific elevation of levels of transaminase and lactic acid dehydrogenase [LDH]; Z90.5 Acquired absence of kidney; Z90.81 Acquired absence of spleen; Z87.19 Personal history of other diseases of the digestive system; K42.9 Umbilical hernia without obstruction or gangrene; K75.9 Inflammatory liver disease, unspecified
CPT/HCPCS: 36415; 71045-TC-FY; 74176-TC; 74181-TC; 76705-TC; 80053; 80074; 80076; 81003; 82105; 82378; 83010; 83036; 83615; 83690; 85025; 85027; 85610; 85730; 86301; 86850; 86900; 86901; 87040; 87086; 88304-TC; 93005; 93010; 94010; 94760; 97116-GP; 97161-GP; 99284-25; J1644; J7030

== ENCOUNTER 2017-12-01 02:14 | Emergency (ER) | payer OTHER ==
[2017-12-01 02:40] VITALS: BP 124/77; PULSE 76; TEMP 97.6; BMI 22.4
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
[2017-12-01] MEDS ORDERED: ONDANSETRON 4 MG/2 ML VIAL IVPUSH ONE (04:15)
[2017-12-01] MEDS ORDERED: SODIUM CHLORIDE 1,000 ML IV SCH (04:15)
[2017-12-01] MEDS ORDERED: ONDANSETRON 4 MG/2 ML VIAL ONE (04:23)
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
[2017-12-01] MEDS ORDERED: ONDANSETRON 4 MG TABLET PO ONE (04:44)
[2017-12-01] MEDS ORDERED: ONDANSETRON *ODT* 4 MG TABLET ONE (04:52)
--- NOTE | 2017-12-01 11:57 | EKG ---
Test Reason : Blood Pressure : / mmHG Vent. Rate : 056 BPM Atrial Rate : 056 BPM P-R Int : 156 ms QRS Dur : 086 ms QT Int : 388 ms P-R-T Axes : 039 014 037 degrees QTc Int : 374 ms SINUS BRADYCARDIA WITH SINUS ARRHYTHMIA CANNOT RULE OUT ANTERIOR INFARCT , AGE UNDETERMINED ABNORMAL ECG WHEN COMPARED WITH ECG OF 24-SEP-2017 12:40, BORDERLINE CRITERIA FOR INFERIOR INFARCT ARE NO LONGER PRESENT Confirmed by TOM WINTER MD ([id number]) on 12/01/2017 11:57:11 AM Referred By: Confirmed By:TOM WINTER MD
== END 2017-12-01 05:10 | disposition home or self-care (01) ==
LOC: JER 02:14
DX: R10.9 Unspecified abdominal pain (principal)
CPT/HCPCS: 74021-TC-FY; 93005; 93010; 99282-25

== ENCOUNTER 2018-06-18 04:53 | Emergency (ER) | payer OTHER ==
[2018-06-18] MEDS ORDERED: MAG HYDROX/AL HYDROX/SIMETH 30 ML UNIT-DOSE CUP PO ONE (05:26)
[2018-06-18] MEDS ORDERED: RANITIDINE HCL 150 MG TABLET (FP) PO ONE (05:26)
[2018-06-18 05:27] VITALS: BP 114/75; PULSE 18; TEMP 98.8; BMI 20.7
[2018-06-18] MEDS ORDERED: MAG HYDROX/AL HYDROX/SIMETH 30 ML UNIT-DOSE CUP ONE (05:31)
[2018-06-18] MEDS ORDERED: RANITIDINE HCL 150 MG TABLET (FP) ONE (05:31)
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
== END 2018-06-18 07:59 | disposition home or self-care (01) ==
LOC: JER 04:53
DX: R10.13 Epigastric pain (principal); Z87.19 Personal history of other diseases of the digestive system; Z90.49 Acquired absence of other specified parts of digestive tract; Z90.5 Acquired absence of kidney
CPT/HCPCS: 74019-TC-FY; 99283-25

== ENCOUNTER 2018-06-29 04:47 | Emergency (ER) | payer OTHER ==
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
[2018-06-29 05:20] VITALS: BP 129/88; PULSE 110; TEMP 97.2; BMI 21.6
[2018-06-29] MEDS ORDERED: FAMOTIDINE 20 MG/50 ML IVPB 20 MG/50 ML MG IVPB ONE ×2 (05:26→05:29)
[2018-06-29] MEDS ORDERED: SODIUM CHLORIDE 0.9% 500 ML INFUS.BAG IV ONE (05:26)
[2018-06-29] MEDS ORDERED: ONDANSETRON 4 MG/2 ML VIAL IVPUSH ONE (05:27)
[2018-06-29] MEDS ORDERED: ONDANSETRON 4 MG/2 ML VIAL ONE (05:29)
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
== END 2018-06-29 06:31 | disposition home or self-care (01) ==
LOC: JER 04:47
PROC: 3E033GC Introduction of Other Therapeutic Substance into Peripheral Vein, Percutaneous Approach (ICD-10-PCS; principal; 2018-06-29)
PROC: 3E0337Z Introduction of Electrolytic and Water Balance Substance into Peripheral Vein, Percutaneous Approach (ICD-10-PCS; 2018-06-29)
DX: R10.13 Epigastric pain (principal)
CPT/HCPCS: 96361; 96365; 96375; 99282-25

== ENCOUNTER 2018-09-30 22:15 | Emergency (ER) | payer OTHER ==
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
[2018-10-01] MEDS ORDERED: FAMOTIDINE 20 MG/50 ML IVPB 20 MG/50 ML MG IVPB ONE ×2 (00:10→00:28)
[2018-10-01] MEDS ORDERED: SODIUM CHLORIDE 0.9% 500 ML INFUS.BAG IV ONE ×2 (00:10→02:22)
[2018-10-01] MEDS ORDERED: ONDANSETRON 4 MG/2 ML VIAL IVPUSH ONE ×2 (00:10→02:20)
[2018-10-01] MEDS ORDERED: ONDANSETRON 4 MG/2 ML VIAL ONE ×2 (00:28→02:04)
[2018-10-01 00:46] LABS: BASO % 0.5 % (0-2.0); HEMATOCRIT 47.4 % (35.4-49); HEMOGLOBIN 16.4 GM/dL (11.7-16.9); LYMPH % 12.9 % (8-40); MCHC 34.6 g/dl (32.0-35.9); MEAN CELL VOLUME 89.6 fl (80-96); MEAN PLT VOLUME 8.6 fl (7.5-11.1); MONO % 6.9 % (3.8-10.2); NEUT % 79.7 % (42.8-82.8); PLATELET COUNT 398 K/MM3 (134-434); RBC 5.29 M/mm3 (4.00-5.60); RDW 13.3 % (11.9-15.9); WHITE BLOOD COUNT 14.7 K/mm3 (4.0-10.0)
[2018-10-01 00:49] LABS: EPI CELLS 1.2 /HPF (0-5/HPF); HYALINE CASTS 25 /lpf (0-8); PH,URINE 5.5 (5.0-8.0); URINE APPEARANCE CLEAR; URINE BACTERIA 1.2 /hpf (NEGATIVE); URINE BILIRUBIN 2+ (NEGATIVE); URINE COLOR DK YELLOW; URINE GLUCOSE (UA) NEGATIVE (NEGATIVE); URINE KETONE 4+ (NEGATIVE); URINE LEUK ESTERASE NEGATIVE (NEGATIVE); URINE NITRITE NEGATIVE (NEGATIVE); URINE PROTEIN 1+ (NEGATIVE); URINE RBC 2 /hpf (0-4); URINE WBC 2 /hpf (0-5)
[2018-10-01 01:07] LABS: ALBUMIN 4.4 g/dl (3.4-5.0); BLOOD UREA NITROGEN 15.6 mg/dL (7-18); CALCIUM 9.8 mg/dL (8.5-10.1); CREATININE 1.1 mg/dL (0.55-1.3); POTASSIUM 4.3 mmol/L (3.5-5.1); TOT PROT 8.3 g/dl (6.4-8.2)
[2018-10-01 03:48] VITALS: TEMP 98.3
[2018-10-01] MEDS ORDERED: DEXTROSE 5%-NORMAL SALINE 1,000 ML IV ONE (05:14)
[2018-10-01 05:46] VITALS: BP 101/58; PULSE 91
== END 2018-10-01 06:58 | disposition home or self-care (01) ==
LOC: JER 22:15
PROC: 3E0337Z Introduction of Electrolytic and Water Balance Substance into Peripheral Vein, Percutaneous Approach (ICD-10-PCS; principal; 2018-09-30)
PROC: 3E033GC Introduction of Other Therapeutic Substance into Peripheral Vein, Percutaneous Approach (ICD-10-PCS; 2018-09-30)
PROC: 3E033GC Introduction of Other Therapeutic Substance into Peripheral Vein, Percutaneous Approach (ICD-10-PCS; 2018-09-30)
DX: K52.9 Noninfective gastroenteritis and colitis, unspecified (principal); Z90.5 Acquired absence of kidney; Z87.828 Personal history of other (healed) physical injury and trauma
CPT/HCPCS: 36415; 74019-TC-FY; 74176-TC; 80053; 81003; 83690; 85025; 96361; 96365; 96375; 96376; 99283-25